=== PATIENT | male | born 1975 | race Caucasian/White ===

== ENCOUNTER 2020-06-03 16:39 | Emergency (ER) | payer OTHER ==
[~2020-06-03] VITALS: Ht 182.9 cm; Wt 61.2 kg
[2020-06-03] MEDS ORDERED: KEFLEX500 M1 PO (18:05)
[2020-06-03 18:46] VITALS: BP 114/74
== END 2020-06-03 18:46 | disposition home or self-care (01) ==
LOC: M.ERS 16:39
DX: S61.011A Laceration without foreign body of right thumb without damage to nail, initial encounter (principal); W26.8XXA Contact with other sharp object(s), not elsewhere classified, initial encounter; Y93.89 Activity, other specified; Y92.89 Other specified places as the place of occurrence of the external cause; Y99.8 Other external cause status